=== PATIENT | male | born 1970 | race Hispanic/Latino ===

== ENCOUNTER 2023-01-09 14:58 | Emergency (ER) | payer SELFPAY ==
[2023-01-09] MEDS ORDERED: Lidocaine 1% w/Epinephrine 1:100K 20 ML VIAL ONE ×2 (17:15→17:24)
[2023-01-09] MEDS ORDERED: Lidocaine 1% PF 5 ML VIAL ONE (17:24)
[2023-01-09] MEDS ORDERED: Amoxicillin/Potassium Clav 250 MG TAB ONE (18:22)
[2023-01-09] MEDS ORDERED: Bupivacaine 0.25% 10 ML VIAL ONE (18:22)
== END 2023-01-09 17:59 | disposition home or self-care (01) ==
LOC: ERS 14:58
DX: S01.81XA Laceration without foreign body of other part of head, initial encounter (principal); F17.210 Nicotine dependence, cigarettes, uncomplicated; W26.8XXA Contact with other sharp object(s), not elsewhere classified, initial encounter
CPT/HCPCS: 12015; S0020

== ENCOUNTER 2023-01-15 12:20 | Emergency (ER) | payer SELFPAY | END 2023-01-15 13:05 | disposition home or self-care (01) | LOC: ERS 12:20 | DX: S01.411D Laceration without foreign body of right cheek and temporomandibular area, subsequent encounter (principal); F17.210 Nicotine dependence, cigarettes, uncomplicated; W45.8XXD Other foreign body or object entering through skin, subsequent encounter ==